=== PATIENT | female | born 2000 | race Caucasian/White ===

== ENCOUNTER 2019-10-23 03:47 | Emergency (ER) | payer SELFPAY ==
[2019-10-23] MEDS ORDERED: Proparacaine 0.5% Ophth Soln 15 ML Bottle EYELF ONE (03:57)
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
== END 2019-10-23 05:45 | disposition home or self-care (01) ==
LOC: JP.ED 03:47
DX: S06.0X0A Concussion without loss of consciousness, initial encounter (principal); S00.83XA Contusion of other part of head, initial encounter; S00.12XA Contusion of left eyelid and periocular area, initial encounter; V58.6XXA Passenger in pick-up truck or van injured in noncollision transport accident in traffic accident, initial encounter
CPT/HCPCS: 36415; 70450; 73630; 80053; 85025; 99284; A9270; 99283

== ENCOUNTER 2021-05-13 20:31 | Inpatient (IN) | payer SELFPAY ==
[2021-05-13] MEDS ORDERED: Ondansetron 4 MG/2 ML SDV IVPUSH ONE ×2 (20:33→23:53)
[2021-05-13] MEDS ORDERED: Sodium Chloride 0.9% 1,000 ML IV SCH (20:45)
--- NOTE | 2021-05-13 21:01 | EDM.PDOCBH ---
ED HPI GENERAL MEDICAL PROBLEM - General Chief Complaint: Behavioral/Psych Stated Complaint: MEDICAL VIA [facility] Time Seen by Provider: 05/13/21 20:32 Source of Information: Reports: Patient, EMS History Limitations: Reports: No Limitations - History of Present Illness INITIAL COMMENTS - FREE TEXT/NARRATIVE: Taina is a 20-year-old female brought in by [facility] for evaluation of attempted overdose. Patient states that she has been suicidal for the last 3 weeks and tonight was at the bar drinking. Her uncle picked her up and brought her home at which time she felt more anxious and suicidal and decided to ingest 200 tablets of ibuprofen 200 mg as well as 2 to 300 tablets of extra strength acetaminophen 500 mg and wash them down with 4 or 5 shots of tequila. The patient has a history for anxiety and depression and has been prescribed fluoxetine 40 mg a day which was recently increased from 20 mg a day as well as hydroxyzine 25 mg as needed for anxiety. She has vomited several times since EMS was involved. There are some pill fragments seen in the emesis bag that she presents with. The ingestion occurred approximately an hour prior to arrival. I did discuss the case with [place] poison control who recommended getting an acetaminophen level 4 hours after ingestion and if we lie along the nomogram above 150 and initiate N-acetylcholine therapy. denies pain Pain Score (Numeric/FACES): 0 - Related Data Allergies Allergy/AdvReac Type Severity Reaction Status Date / Time No Known Allergies Allergy Verified 05/13/21 20:53 Home Meds: Home Meds medroxyPROGESTERone Acetate [Depo-Provera] 1 injection IM ASDIRECTED 10/23/19 [History] FLUoxetine HCl [Prozac] 40 mg PO ASDIRECTED 05/13/21 [History] hydrOXYzine HCL [hydrOXYzine] 25 mg PO ASDIRECTED 05/13/21 [History] Past Medical History Musculoskeletal History: Reports: Fracture, Other (See Below) Other Musculoskeletal History: right foot Neurological History: Reports: Concussion Psychiatric History: Reports: Anxiety, Depression - Past Surgical History Musculoskeletal Surgical History: Reports: Other (See Below) Other Musculoskeletal Surgeries/Procedures:: surgical repair of right foot Social & Family History - Caffeine Use Caffeine Use: Reports: Coffee ED ROS GENERAL - Review of Systems Review Of Systems: See Below Constitutional: Reports: No Symptoms HEENT: Reports: No Symptoms Respiratory: Reports: No Symptoms Cardiovascular: Reports: No Symptoms Endocrine: Reports: No Symptoms GI/Abdominal: Reports: Abdominal Pain, Nausea, Vomiting : Reports: No Symptoms Musculoskeletal: Reports: No Symptoms Skin: Reports: No Symptoms Neurological: Reports: Headache, Tremors Psychiatric: Reports: Anxiety, Depression, Suicidal Ideation Hematologic/Lymphatic: Reports: No Symptoms Immunologic: Reports: No Symptoms ED EXAM, BEHAVIORAL HEALTH - Physical Exam Exam: See Below Exam Limited By: No Limitations General Appearance: Alert, Anxious, Mild Distress Eye Exam: Bilateral Eye: EOMI, PERRL Nose: Normal Inspection, Normal Mucosa Throat/Mouth: Normal Inspection, Normal Oropharynx, Normal Voice, No Airway Compromise Head: Atraumatic, Normocephalic Neck: Normal Inspection, Supple. No: Lymphadenopathy (R), Lymphadenopathy (L) Respiratory/Chest: No Respiratory Distress, Lungs Clear, Normal Breath Sounds Cardiovascular: Normal Peripheral Pulses, Regular Rate, Rhythm, No Murmur GI/Abdominal: Normal Bowel Sounds, Soft, No Distention, Tender (Tenderness to palpation in the epigastrium). No: Guarding, Rigid, Rebound Extremities: Normal Inspection, Normal Range of Motion Neurological: Alert, CN II-XII Intact, Normal Cognition, No Motor/Sensory Deficits, Oriented x 3 Psychiatric: Depressed Mood, Agitated, Poor Eye Contact, Suicidal Plan, Suicidal Thoughts Skin Exam: Warm, Dry #1 Interpretation EKG Date: 05/13/21 Time: 21:08 Rhythm: NSR Rate (Beats/Min): 81 Falcon: Normal P-Wave: Present QRS: Normal ST-T: Normal QT: Normal Comparison: NA - No Prior EKG COURSE, BEHAVIORAL HEALTH COMP - Course Vital Signs: Last Vital Signs Temp 37.0 C 05/16/21 07:57 Pulse 86 05/16/21 06:00 Resp 18 05/16/21 07:57 BP 109/46 L 05/16/21 07:57 Pulse Ox 99 05/16/21 07:57 Orders, Labs, Meds: Laboratory Tests 05/13/21 05/13/21 05/13/21 Range/Units 20:54 21:03 21:03 WBC 7.0 (3.2-11.0) K/uL RBC 4.48 (3.77-5.24) M/uL Hgb 13.5 (11.2-15.5) Hct 40.7 (34.3-46.0) % MCV 90.8 (81.4-99.0) fL MCH 30.1 L (31.6-35.5) pg MCHC 33.2 (31.6-35.5) g/dL Plt Count 292 (130-375) K/uL Immature Gran % (Auto) 0.4 (0.0-0.7) % Neut % (Auto) 68.0 H (36-66) % Lymph % (Auto) 28.4 (24-44) % Cobb % (Auto) 2.8 (2-6) % Eos % (Auto) 0.1 L (2-4) % Baso % (Auto) 0.3 (0-1) % Neut # (Auto) 4.77 (1.0-7.6) K/uL Lymph # (Auto) 2.00 (0.8-3.3) K/uL Cobb # (Auto) 0.20 (0.20-0.90) K/uL Eos # (Auto) 0.01 L (0.60-0.80) K/uL Baso # (Auto) 0.02 (0.00-0.10) K/uL Immature Gran # (Auto) 0.03 (0.00-0.23) K/uL Sodium 146 (140-148) mmol/L Potassium 3.4 L (3.6-5.2) mmol/L Chloride 108 (100-108) mmol/L Carbon Dioxide 23 (21-32) mmol/L Anion Gap 18.4 H (5.0-14.0) mmol/L BUN 9 (7-18) mg/dL Creatinine 0.7 (0.6-1.0) mg/dL Est Cr Clr Drug Dosing 122.59 mL/min Estimated GFR (MDRD) > 60 (>60) Glucose 119 H (74-106) mg/dL Calcium 8.3 L (8.5-10.1) mg/dL Total Bilirubin 0.3 (0.2-1.0) mg/dL AST 15 (15-37) U/L ALT 19 (12-78) U/L Alkaline Phosphatase 44 L (46-116) U/L C-Reactive Protein < 0.05 (0.0-0.3) mg/dL Total Protein 7.7 (6.4-8.2) g/dL Albumin 4.2 (3.4-5.0) g/dL Globulin 3.5 (2.3-3.5) g/dL Albumin/Globulin Ratio 1.2 (1.2-2.2) Lipase 165 (73-393) U/L Urine Color (YELLOW) Urine Appearance (CLEAR) Urine pH (5.0-8.0) Ur Specific Melrose (1.008-1.030) Urine Protein (NEGATIVE) mg/dL Urine Glucose (UA) (NEGATIVE) mg/dL Urine Ketones (NEGATIVE) mg/dL Urine Occult Blood (NEGATIVE) Urine Nitrite (NEGATIVE) Urine Bilirubin (NEGATIVE) Urine Urobilinogen (0.2-1.0) EU/dL Ur Leukocyte Esterase (NEGATIVE) Urine RBC (0-5) Urine WBC (0-5) Ur Epithelial Cells Amorphous Sediment Urine Bacteria Urine Mucus Urine HCG, Qual Salicylates (2.0-20.0) mg/dL Urine Opiates Screen (NEGATIVE) Ur Oxycodone Screen (NEGATIVE) Urine Methadone Screen (NEGATIVE) Ur Propoxyphene Screen (NEGATIVE) Acetaminophen 276.6 H (10.0-30.0) ug/mL Ur Barbiturates Screen (NEGATIVE) Ur Tricyclics Screen (NEGATIVE) Ur Phencyclidine Scrn (NEGATIVE) Ur Amphetamine Screen (NEGATIVE) U Methamphetamines Scrn (NEGATIVE) Urine MDMA Screen (NEGATIVE) U Benzodiazepines Scrn (NEGATIVE) U Cocaine Metab Screen (NEGATIVE) U Marijuana (THC) Screen (NEGATIVE) Ethyl Alcohol mg/dL Influenza Type A RNA Negative (NEGATIVE) RSV RNA (INAAT) Negative (NEGATIVE) Influenza Type B RNA Negative (NEGATIVE) SARS-CoV-2 RNA (MRAGE) Negative (NEGATIVE) 05/13/21 05/13/21 05/13/21 Range/Units 21:03 21:03 22:07 WBC (3.2-11.0) K/uL RBC (3.77-5.24) M/uL Hgb (11.2-15.5) Hct (34.3-46.0) % MCV (81.4-99.0) fL MCH (31.6-35.5) pg MCHC (31.6-35.5) g/dL Plt Count (130-375) K/uL Immature Gran % (Auto) (0.0-0.7) % Neut % (Auto) (36-66) % Lymph % (Auto) (24-44) % Cobb % (Auto) (2-6) % Eos % (Auto) (2-4) % Baso % (Auto) (0-1) % Neut # (Auto) (1.0-7.6) K/uL Lymph # (Auto) (0.8-3.3) K/uL Cobb # (Auto) (0.20-0.90) K/uL Eos # (Auto) (0.60-0.80) K/uL Baso # (Auto) (0.00-0.10) K/uL Immature Gran # (Auto) (0.00-0.23) K/uL Sodium (140-148) mmol/L Potassium (3.6-5.2) mmol/L Chloride (100-108) mmol/L Carbon Dioxide (21-32) mmol/L Anion Gap (5.0-14.0) mmol/L BUN (7-18) mg/dL Creatinine (0.6-1.0) mg/dL Est Cr Clr Drug Dosing mL/min Estimated GFR (MDRD) (>60) Glucose (74-106) mg/dL Calcium (8.5-10.1) mg/dL Total Bilirubin (0.2-1.0) mg/dL AST (15-37) U/L ALT (12-78) U/L Alkaline Phosphatase (46-116) U/L C-Reactive Protein (0.0-0.3) mg/dL Total Protein (6.4-8.2) g/dL Albumin (3.4-5.0) g/dL Globulin (2.3-3.5) g/dL Albumin/Globulin Ratio (1.2-2.2) Lipase (73-393) U/L Urine Color Yellow (YELLOW) Urine Appearance Clear (CLEAR) Urine pH 6.0 (5.0-8.0) Ur Specific Mel[place] 1.020 (1.008-1.030) Urine Protein Negative (NEGATIVE) mg/dL Urine Glucose (UA) Negative (NEGATIVE) mg/dL Urine Ketones Negative (NEGATIVE) mg/dL Urine Occult Blood Negative (NEGATIVE) Urine Nitrite Negative (NEGATIVE) Urine Bilirubin Negative (NEGATIVE) Urine Urobilinogen 0.2 (0.2-1.0) EU/dL Ur Leukocyte Esterase Negative (NEGATIVE) Urine RBC 0-5 (0-5) Urine WBC Not seen (0-5) Ur Epithelial Cells Rare Amorphous Sediment Not seen Urine Bacteria Not seen Urine Mucus Not seen Urine HCG, Qual Salicylates 1.6 L (2.0-20.0) mg/dL Urine Opiates Screen (NEGATIVE) Ur Oxycodone Screen (NEGATIVE) Urine Methadone Screen (NEGATIVE) Ur Propoxyphene Screen (NEGATIVE) Acetaminophen (10.0-30.0) ug/mL Ur Barbiturates Screen (NEGATIVE) Ur Tricyclics Screen (NEGATIVE) Ur Phencyclidine Scrn (NEGATIVE) Ur Amphetamine Screen (NEGATIVE) U Methamphetamines Scrn (NEGATIVE) Urine MDMA Screen (NEGATIVE) U Benzodiazepines Scrn (NEGATIVE) U Cocaine Metab Screen (NEGATIVE) U Marijuana (THC) Screen (NEGATIVE) Ethyl Alcohol 232 mg/dL Influenza Type A RNA (NEGATIVE) RSV RNA (INAAT) (NEGATIVE) Influenza Type B RNA (NEGATIVE) SARS-CoV-2 RNA (MARGE) (NEGATIVE) 05/13/21 05/13/21 05/13/21 Range/Units 22:07 22:07 23:30 WBC (3.2-11.0) K/uL RBC (3.77-5.24) M/uL Hgb (11.2-15.5) Hct (34.3-46.0) % MCV (81.4-99.0) fL MCH (31.6-35.5) pg MCHC (31.6-35.5) g/dL Plt Count (130-375) K/uL Immature Gran % (Auto) (0.0-0.7) % Neut % (Auto) (36-66) % Lymph % (Auto) (24-44) % Cobb % (Auto) (2-6) % Eos % (Auto) (2-4) % Baso % (Auto) (0-1) % Neut # (Auto) (1.0-7.6) K/uL Lymph # (Auto) (0.8-3.3) K/uL Cobb # (Auto) (0.20-0.90) K/uL Eos # (Auto) (0.60-0.80) K/uL Baso # (Auto) (0.00-0.10) K/uL Immature Gran # (Auto) (0.00-0.23) K/uL Sodium (140-148) mmol/L Potassium (3.6-5.2) mmol/L Chloride (100-108) mmol/L Carbon Dioxide (21-32) mmol/L Anion Gap (5.0-14.0) mmol/L BUN (7-18) mg/dL Creatinine (0.6-1.0) mg/dL Est Cr Clr Drug Dosing mL/min Estimated GFR (MDRD) (>60) Glucose (74-106) mg/dL Calcium (8.5-10.1) mg/dL Total Bilirubin (0.2-1.0) mg/dL AST (15-37) U/L ALT (12-78) U/L Alkaline Phosphatase (46-116) U/L C-Reactive Protein (0.0-0.3) mg/dL Total Protein (6.4-8.2) g/dL Albumin (3.4-5.0) g/dL Globulin (2.3-3.5) g/dL Albumin/Globulin Ratio (1.2-2.2) Lipase (73-393) U/L Urine Color (YELLOW) Urine Appearance (CLEAR) Urine pH (5.0-8.0) Ur Specific Melrose (1.008-1.030) Urine Protein (NEGATIVE) mg/dL Urine Glucose (UA) (NEGATIVE) mg/dL Urine Ketones (NEGATIVE) mg/dL Urine Occult Blood (NEGATIVE) Urine Nitrite (NEGATIVE) Urine Bilirubin (NEGATIVE) Urine Urobilinogen (0.2-1.0) EU/dL Ur Leukocyte Esterase (NEGATIVE) Urine RBC (0-5) Urine WBC (0-5) Ur Epithelial Cells Amorphous Sediment Urine Bacteria Urine Mucus Urine HCG, Qual Negative Salicylates (2.0-20.0) mg/dL Urine Opiates Screen Negative (NEGATIVE) Ur Oxycodone Screen Negative (NEGATIVE) Urine Methadone Screen Negative (NEGATIVE) Ur Propoxyphene Screen Negative (NEGATIVE) Acetaminophen 345.9 H (10.0-30.0) ug/mL Ur Barbiturates Screen Negative (NEGATIVE) Ur Tricyclics Screen Negative (NEGATIVE) Ur Phencyclidine Scrn Negative (NEGATIVE) Ur Amphetamine Screen Negative (NEGATIVE) U Methamphetamines Scrn Negative (NEGATIVE) Urine MDMA Screen Negative (NEGATIVE) U Benzodiazepines Scrn Negative (NEGATIVE) U Cocaine Metab Screen Negative (NEGATIVE) U Marijuana (THC) Screen Negative (NEGATIVE) Ethyl Alcohol mg/dL Influenza Type A RNA (NEGATIVE) RSV RNA (INAAT) (NEGATIVE) Influenza Type B RNA (NEGATIVE) SARS-CoV-2 RNA (MARGE) (NEGATIVE) 05/14/21 05/14/21 05/14/21 Range/Units 07:30 11:00 11:00 WBC 7.3 (3.2-11.0) K/uL RBC 4.62 (3.77-5.24) M/uL Hgb 13.8 (11.2-15.5) Hct 42.9 (34.3-46.0) % MCV 92.9 (81.4-99.0) fL MCH 29.9 L (31.6-35.5) pg MCHC 32.2 (31.6-35.5) g/dL Plt Count 287 (130-375) K/uL Immature Gran % (Auto) 0.5 (0.0-0.7) % Neut % (Auto) 78.1 H (36-66) % Lymph % (Auto) 19.8 L (24-44) % Cobb % (Auto) 1.5 L (2-6) % Eos % (Auto) 0.0 L (2-4) % Baso % (Auto) 0.1 (0-1) % Neut # (Auto) 5.73 (1.0-7.6) K/uL Lymph # (Auto) 1.45 (0.8-3.3) K/uL Cobb # (Auto) 0.11 L (0.20-0.90) K/uL Eos # (Auto) 0.00 L (0.60-0.80) K/uL Baso # (Auto) 0.01 (0.00-0.10) K/uL Immature Gran # (Auto) 0.04 (0.00-0.23) K/uL Sodium 141 (140-148) mmol/L Potassium 4.0 (3.6-5.2) mmol/L Chloride 106 (100-108) mmol/L Carbon Dioxide 16 L (21-32) mmol/L Anion Gap 23.0 H (5.0-14.0) mmol/L BUN 7 (7-18) mg/dL Creatinine 0.9 (0.6-1.0) mg/dL Est Cr Clr Drug Dosing 95.35 mL/min Estimated GFR (MDRD) > 60 (>60) Glucose 136 H (74-106) mg/dL Calcium 8.4 L (8.5-10.1) mg/dL Total Bilirubin 0.3 (0.2-1.0) mg/dL AST 17 (15-37) U/L ALT 20 (12-78) U/L Alkaline Phosphatase 41 L (46-116) U/L C-Reactive Protein (0.0-0.3) mg/dL Total Protein 8.2 (6.4-8.2) g/dL Albumin 4.4 (3.4-5.0) g/dL Globulin 3.8 H (2.3-3.5) g/dL Albumin/Globulin Ratio 1.2 (1.2-2.2) Lipase (73-393) U/L Urine Color (YELLOW) Urine Appearance (CLEAR) Urine pH (5.0-8.0) Ur Specific Melrose (1.008-1.030) Urine Protein (NEGATIVE) mg/dL Urine Glucose (UA) (NEGATIVE) mg/dL Urine Ketones (NEGATIVE) mg/dL Urine Occult Blood (NEGATIVE) Urine Nitrite (NEGATIVE) Urine Bilirubin (NEGATIVE) Urine Urobilinogen (0.2-1.0) EU/dL Ur Leukocyte Esterase (NEGATIVE) Urine RBC (0-5) Urine WBC (0-5) Ur Epithelial Cells Amorphous Sediment Urine Bacteria Urine Mucus Urine HCG, Qual Salicylates (2.0-20.0) mg/dL Urine Opiates Screen (NEGATIVE) Ur Oxycodone Screen (NEGATIVE) Urine Methadone Screen (NEGATIVE) Ur Propoxyphene Screen (NEGATIVE) Acetaminophen 397.7 H (10.0-30.0) ug/mL Ur Barbiturates Screen (NEGATIVE) Ur Tricyclics Screen (NEGATIVE) Ur Phencyclidine Scrn (NEGATIVE) Ur Amphetamine Screen (NEGATIVE) U Methamphetamines Scrn (NEGATIVE) Urine MDMA Screen (NEGATIVE) U Benzodiazepines Scrn (NEGATIVE) U Cocaine Metab Screen (NEGATIVE) U Marijuana (THC) Screen (NEGATIVE) Ethyl Alcohol mg/dL Influenza Type A RNA (NEGATIVE) RSV RNA (INAAT) (NEGATIVE) Influenza Type B RNA (NEGATIVE) SARS-CoV-2 RNA (MARGE) (NEGATIVE) Medications Discontinued Medications Generic Name Dose Route Start Last Admin Trade Name Abel PRN Reason Stop Dose Admin Fluoxetine HCl 40 mg 05/14/21 14:35 05/16/21 07:59 Fluoxetine 20 Mg Cap PO 40 mg DAILY TOBIN Administration Sodium Chloride 1,000 mls @ 999 mls/hr 05/13/21 20:45 05/13/21 21:05 Normal Saline IV 999 mls/hr ASDIRECTED TOBIN Administration Acetylcysteine 10,206 mg/ 251.03 mls @ 251.03 mls/hr 05/14/21 00:01 05/14/21 00:31 Dextrose/Water IV 05/14/21 00:02 251.03 mls/hr STAT STA Administration Protocol Acetylcysteine 3,402 mg/ 517.01 mls @ 129.253 mls/hr 05/14/21 01:04 05/14/21 01:47 Dextrose/Water IV 05/14/21 01:05 129.253 mls/hr ONETIME ONE Administration Protocol Acetylcysteine 6,804 mg/ 1,034.02 mls @ 64.626 mls/hr 05/14/21 05:06 05/14/21 06:03 Dextrose/Water IV 05/14/21 05:07 64.626 mls/hr ONETIME ONE Administration Protocol Acetylcysteine Confirm 05/14/21 00:19 05/14/21 00:33 Acetadote 20% Administered 05/14/21 00:20 Not Given Dose 60 mls @ as directed .ROUTE .STK-MED ONE Dextrose/Water Confirm 05/14/21 00:21 05/14/21 00:33 Dextrose 5% In Water Administered 05/14/21 00:22 Not Given Dose 250 mls @ as directed .ROUTE .STK-MED ONE Acetylcysteine Confirm 05/14/21 05:50 05/14/21 06:04 Acetadote 20% Administered 05/14/21 05:51 Not Given Dose 30 mls @ as directed .ROUTE .STK-MED ONE Sodium Chloride 1,000 mls @ 125 mls/hr 05/14/21 14:35 05/15/21 06:28 Normal Saline IV 125 mls/hr ASDIRECTED TOBIN Administration Acetylcysteine 6,804 mg/ 1,034.02 mls @ 64.626 mls/hr 05/14/21 22:00 05/14/21 22:28 Dextrose/Water IV 05/15/21 13:59 64.626 mls/hr ONETIME ONE Administration Acetylcysteine Confirm 05/14/21 21:50 05/14/21 22:13 Acetadote 20% Administered 05/14/21 21:51 Not Given Dose 60 mls @ as directed .ROUTE .STK-MED ONE Potassium Chloride 20 meq/ 100 mls @ 50 mls/hr 05/15/21 06:00 05/15/21 06:20 Premix IV 05/15/21 07:59 50 mls/hr ONETIME ONE Administration Potassium Chloride 20 meq/ 112 mls @ 50 mls/hr 05/15/21 08:00 05/15/21 08:11 Lidocaine HCl 2 ml/ Sodium IV 05/15/21 10:14 50 mls/hr Chloride ONETIME ONE Administration Lidocaine HCl 2 ml 05/15/21 06:00 05/15/21 06:21 Lidocaine 1% 5 Ml Sdv INJECT 05/15/21 06:01 2 ml ONETIME ONE Administration Olanzapine 10 mg 05/13/21 21:39 05/13/21 21:47 Olanzapine 10 Mg Vial IM 05/13/21 21:40 10 mg ONETIME ONE Administration Ondansetron HCl 4 mg 05/13/21 20:33 05/13/21 21:05 Ondansetron 4 Mg/2 Ml Sdv IVPUSH 05/13/21 20:34 4 mg ONETIME ONE Administration Ondansetron HCl 4 mg 05/13/21 23:53 05/14/21 00:01 Ondansetron 4 Mg/2 Ml Sdv IVPUSH 05/13/21 23:54 4 mg ONETIME ONE Administration Ondansetron HCl 4 mg 05/14/21 14:35 Ondansetron 4 Mg/2 Ml Sdv IVPUSH Q4H PRN Nausea/Vomiting Ondansetron HCl 4 mg 05/14/21 20:07 05/15/21 07:22 Ondansetron 4 Mg Tab.Dis PO 4 mg Q4H PRN Administration Nausea/Vomiting Polyethylene Glycol 17 gm 05/14/21 14:35 Polyethylene Glycol 3350 Powder 17 Gm Packet PO DAILY PRN Constipation Potassium Chloride 40 meq 05/15/21 05:48 05/15/21 06:21 Potassium Chloride 20 Meq Tab.Er PO 05/15/21 05:49 40 meq ONETIME ONE Administration Sodium Chloride 10 ml 05/14/21 14:35 Sodium Chloride 0.9% 10 Ml Syringe FLUSH ASDIRECTED PRN Keep Vein Open Re-Assessment/Re-Exam: 05/13/21 21:00 The patient started removing everything including her IVs nec essitating her being placed in restraints. This will need to continue until we ensure that patient does not required any medical intervention for her Tylenol overdose. 72-hour hold was initiated and endorsed due to suicide ideation and attempted suicide. Once we get her medically cleared from the Tylenol overdose, we will start to look for inpatient placement. 05/13/21 21:45 patient's labs showing a normal CBC with a leukocyte count of 7.0, hemoglobin of 13.5, hematocrit of 40.7 and platelet count of 282,000. The patient's comprehensive metabolic panel shows a sodium 146, potassium 3.4, ch loride of 108, bicarbonate of 23, BUN of 9 with a creatinine of 0.7 and a glucose of 119. Calcium is 8.3, AST is 15, ALT is 19, and alkaline phosphatase is 44. Lipase is normal at 165. C-reactive protein is normal at less than 0.05. Ethanol level is 232, acetaminophen is 276 and salicylate is 1.6. The patient is negative for Covid, RSV, and influenza. Urinalysis, urine drug screen, and urine are all pending. I discussed the case with poison control again as the 1 hour level came back at 276. They are still recommending holding off on N-acetylcysteine until the 4-hour level was drawn and if it to is over 150 then start treatment. The patient continued to escalate in the restraints and was given Zyprexa 10 mg IM. 05/13/21 22:50 reviewed the remainder of the labs including urinalysis, urine drug screen, and urine . All of these were negative. 05/14/21 00:05 the 4-hour acetaminophen level was greater than 300 which certainly puts it into the lethal range so we will initiate N-acetylcysteine with a loading dose of 150 mg/kg per dose over an hour followed by tier 2 which is 50 mg/kg per dose over 4 hours and then tier 3 which is 100 mg/kg per dose over 16 hours. Actual number for acetaminophen level is 349. 05/14/21 07:30 care of the patient will be transferred from Dr. Harrington to Dr. Dorseyr while awaiting placement of the patient for Tylenol overdose and suicide attempt. Departure - Departure Time of Disposition: 10:55 Disposition: Admitted As Inpatient 64 Clinical Impression: Suicide ideation Intentional acetaminophen overdose Qualifiers: Encounter type: initial encounter Qualified Code(s): T39.1X2A - Poisoning by 4- Aminophenol derivatives, intentional self-harm, initial encounter Intentional ibuprofen overdose Qualifiers: Encounter type: initial encounter Qualified Code(s): T39.312A - Poisoning by propionic acid derivatives, intentional self-harm, initial encounter Alcohol intoxication Qualifiers: Complication of substance-induced condition: uncomplicated Qualified Code(s): F10.920 - Alcohol use, unspecified with intoxication, uncomplicated - Discharge Information Critical Care Note - Critical Care Note Total Time (mins): 55 (Critical care time of 55 minutes to initiate patient evaluation, review records, and manage patient care. This excludes procedures.) - Problem List & Annotations (1) Alcohol intoxication SNOMED Code(s): 82573668 Code(s): F10.929 - ALCOHOL USE, UNSPECIFIED WITH INTOXICATION, UNSPECIFIED Status: Acute Priority: High Qualifiers: Complication of substance-induced condition: uncomplicated Qualified Code(s): F10.920 - Alcohol use, unspecified with intoxication, uncomplicated (2) Intentional acetaminophen overdose SNOMED Code(s): 323683833 Code(s): T39.1X2A - POISONING BY 4-AMINOPHENOL DERIVATIVES, SELF-HARM, INIT Status: Acute Priority: High Qualifiers: Encounter type: initial encounter Qualified Code(s): T39.1X2A - Poisoning by 4-Aminophenol derivatives, intentional self-harm, initial encounter (3) Intentional ibuprofen overdose SNOMED Code(s): 436679878 Code(s): T39.312A - POISONING BY PROPIONIC ACID DERIVATIVES, SELF-HARM, INIT Status: Acute Priority: High Qualifiers: Encounter type: initial encounter Qualified Code(s): T39.312A - Poisoning by propionic acid derivatives, intentional self-harm, initial encounter (4) Suicide ideation SNOMED Code(s): 0781883 Code(s): R45.851 - SUICIDAL IDEATIONS Status: Acute Priority: High - Problem List Review Problem List Initiated/Reviewed/Updated: Yes
[2021-05-13 21:22] LABS: CORONAVIRUS COVID-19 NAA NEGATIVE (NEGATIVE)
[2021-05-13 21:25] LABS: ACETAMINOPHEN 276.6 ug/mL (10.0-30.0)
[2021-05-13] MEDS ORDERED: OLANZapine 10 MG Vial IM ONE (21:39)
[2021-05-14] MEDS ORDERED: DEXTROSE 5% IV STA ×2 (00:01)
[2021-05-14] MEDS ORDERED: WATER IV STA ×2 (00:01)
[2021-05-14] MEDS ORDERED: ACETYLCYSTEINE IV STA ×2 (00:01)
[2021-05-14] MEDS ORDERED: Acetylcysteine 60 ML ONE ×2 (00:19→21:50)
[2021-05-14] MEDS ORDERED: Dextrose 5% in Water 250 ML ONE (00:21)
[2021-05-14] MEDS ORDERED: ACETYLCYSTEINE IV ONE ×6 (01:04→22:00)
[2021-05-14] MEDS ORDERED: DEXTROSE 5% IV ONE ×6 (01:04→22:00)
[2021-05-14] MEDS ORDERED: WATER IV ONE ×6 (01:04→22:00)
[2021-05-14] MEDS ORDERED: Acetylcysteine 30 ML ONE (05:50)
--- NOTE | 2021-05-14 14:02 | PCM.HP.2 ---
H&P History of Present Illness - General Date of Service: 05/14/21 Admit Problem/Dx: Admission Diagnosis/Problem Admission Diagnosis/Problem Drug overdose - suicide Source of Information: Patient, Provider, RN Notes Reviewed History Limitations: Reports: No Limitations - History of Present Illness Initial Comments - Free Text/Narative: Ms. Paez is a 20-year-old woman who was admitted through the emergency department following a acetaminophen overdose and apparent suicide attempt. She does have a history of anxiety and depression, with previous suicide attempt. She has been struggling with symptoms of depression but denies suicidal ideation or intent until yesterday. She drank quite a bit of alcohol during the early evening and after going home took a large amount of acetaminophen and ibuprofen. She was brought into the emergency department by EMS. Initial Tylenol level 1 hour after ingestion was 276 and the second level at 4 hours was 345. Is in control is been contacted and she was started on acetylcysteine per protocol. She did become agitated during the night and did receive some Zyprexa. She is alert and interactive now, currently denies suicidal ideation or intent. She is on a 72-hour hold and has not yet had psychological assessment. - Related Data Allergies/Adverse Reactions: Allergies Allergy/AdvReac Type Severity Reaction Status Date / Time No Known Allergies Allergy Verified 05/13/21 20:53 Home Medications: Home Meds medroxyPROGESTERone Acetate [Depo-Provera] 1 injection IM ASDIRECTED 10/23/19 [History] FLUoxetine HCl [Prozac] 40 mg PO ASDIRECTED 05/13/21 [History] hydrOXYzine HCL [hydrOXYzine] 25 mg PO ASDIRECTED 05/13/21 [History] Past Medical History Musculoskeletal History: Reports: Fracture, Other (See Below) Other Musculoskeletal History: right foot Neurological History: Reports: Concussion Psychiatric History: Reports: Anxiety, Depression - Past Surgical History Musculoskeletal Surgical History: Reports: Other (See Below) Other Musculoskeletal Surgeries/Procedures:: surgical repair of right foot Social & Family History - Tobacco Use Tobacco Use Status *Q: Light Tobacco User Years of Tobacco use: 0 Packs/Tins Daily: 0 - Caffeine Use Caffeine Use: Reports: Coffee - Recreational Drug Use Recreational Drug Use: No H&P Review of Systems - Review of Systems: Review Of Systems: See Below General: Reports: No Symptoms HEENT: Reports: No Symptoms Pulmonary: Reports: No Symptoms Cardiovascular: Reports: No Symptoms Gastrointestinal: Reports: Nausea, Vomiting. Denies: Abdominal Pain, Difficulty Swallowing, Distension, Hematemesis, Hematochezia, Melena Genitourinary: Reports: No Symptoms Musculoskeletal: Reports: No Symptoms Skin: Reports: No Symptoms Psychiatric: Reports: No Symptoms Neurological: Reports: No Symptoms Hematologic/Lymphatic: Reports: No Symptoms Immunologic: Reports: No Symptoms Exam - Exam Exam: See Below - Vital Signs Vital Signs: Last Vital Signs Temp 98.0 F 05/14/21 12:00 Pulse 74 05/14/21 13:00 Resp 20 05/14/21 13:00 BP 127/75 05/14/21 13:00 Pulse Ox 96 05/14/21 11:00 Weight: 150 lb - Exam General: Alert, Oriented, Cooperative, Moderate Distress HEENT: Conjunctiva Clear, Hearing Intact, Mucosa Moist & [place], Normal Nasal Septum, Posterior Pharynx Clear, Pupils Equal Neck: Supple, Trachea Midline Lungs: Clear to Auscultation, Normal Respiratory Effort Cardiovascular: Regular Rate, Regular Rhythm, Normal S1, Normal S2. No: Systolic Murmur, Diastolic Murmur GI/Abdominal Exam: Soft, Non-Tender, No Organomegaly, No Distention Back Exam: Normal Inspection, Full Range of Motion Extremities: Non-Tender, No Pedal Edema Skin: Warm, Dry, Intact Neurological: Cranial Nerves Intact, Strength Equal Bilateral, Normal Speech, Normal Tone, Sensation Intact. No: Focal Deficit Neuro Extensive - Mental Status: Alert, Oriented x3, Normal Mood/Affect, Normal Cognition, Memory Intact - Patient Data Lab Results Last 24 hrs: Laboratory Results - last 24 hr 05/13/21 05/13/21 05/13/21 Range/Units 20:54 21:03 21:03 WBC 7.0 (3.2-11.0) K/uL RBC 4.48 (3.77-5.24) M/uL Hgb 13.5 (11.2-15.5) Hct 40.7 (34.3-46.0) % MCV 90.8 (81.4-99.0) fL MCH 30.1 L (31.6-35.5) pg MCHC 33.2 (31.6-35.5) g/dL Plt Count 292 (130-375) K/uL Immature Gran % (Auto) 0.4 (0.0-0.7) % Neut % (Auto) 68.0 H (36-66) % Lymph % (Auto) 28.4 (24-44) % [place] % (Auto) 2.8 (2-6) % Eos % (Auto) 0.1 L (2-4) % Baso % (Auto) 0.3 (0-1) % Neut # (Auto) 4.77 (1.0-7.6) K/uL Lymph # (Auto) 2.00 (0.8-3.3) K/uL [place] # (Auto) 0.20 (0.20-0.90) K/uL Eos # (Auto) 0.01 L (0.60-0.80) K/uL Baso # (Auto) 0.02 (0.00-0.10) K/uL Immature Gran # (Auto) 0.03 (0.00-0.23) K/uL Sodium 146 (140-148) mmol/L Potassium 3.4 L (3.6-5.2) mmol/L Chloride 108 (100-108) mmol/L Carbon Dioxide 23 (21-32) mmol/L Anion Gap 18.4 H (5.0-14.0) mmol/L BUN 9 (7-18) mg/dL Creatinine 0.7 (0.6-1.0) mg/dL Est Cr Clr Drug Dosing 122.59 mL/min Estimated GFR (MDRD) > 60 (>60) Glucose 119 H (74-106) mg/dL Calcium 8.3 L (8.5-10.1) mg/dL Total Bilirubin 0.3 (0.2-1.0) mg/dL AST 15 (15-37) U/L ALT 19 (12-78) U/L Alkaline Phosphatase 44 L (46-116) U/L C-Reactive Protein < 0.05 (0.0-0.3) mg/dL Total Protein 7.7 (6.4-8.2) g/dL Albumin 4.2 (3.4-5.0) g/dL Globulin 3.5 (2.3-3.5) g/dL Albumin/Globulin Ratio 1.2 (1.2-2.2) Lipase 165 (73-393) U/L Urine Color (YELLOW) Urine Appearance (CLEAR) Urine pH (5.0-8.0) Ur Specific [place] (1.008-1.030) Urine Protein (NEGATIVE) mg/dL Urine Glucose (UA) (NEGATIVE) mg/dL Urine Ketones (NEGATIVE) mg/dL Urine Occult Blood (NEGATIVE) Urine Nitrite (NEGATIVE) Urine Bilirubin (NEGATIVE) Urine Urobilinogen (0.2-1.0) EU/dL Ur Leukocyte Esterase (NEGATIVE) Urine RBC (0-5) Urine WBC (0-5) Ur Epithelial Cells Amorphous Sediment Urine Bacteria Urine Mucus Urine HCG, Qual Salicylates (2.0-20.0) mg/dL Urine Opiates Screen (NEGATIVE) Ur Oxycodone Screen (NEGATIVE) Urine Methadone Screen (NEGATIVE) Ur Propoxyphene Screen (NEGATIVE) Acetaminophen 276.6 H (10.0-30.0) ug/mL Ur Barbiturates Screen (NEGATIVE) Ur Tricyclics Screen (NEGATIVE) Ur Phencyclidine Scrn (NEGATIVE) Ur Amphetamine Screen (NEGATIVE) U Methamphetamines Scrn (NEGATIVE) Urine MDMA Screen (NEGATIVE) U Benzodiazepines Scrn (NEGATIVE) U Cocaine Metab Screen (NEGATIVE) U Marijuana (THC) Screen (NEGATIVE) Ethyl Alcohol mg/dL Influenza Type A RNA Negative (NEGATIVE) RSV RNA (INAAT) Negative (NEGATIVE) Influenza Type B RNA Negative (NEGATIVE) SARS-CoV-2 RNA (MARGE) Negative (NEGATIVE) 05/13/21 05/13/21 05/13/21 Range/Units 21:03 21:03 22:07 WBC (3.2-11.0) K/uL RBC (3.77-5.24) M/uL Hgb (11.2-15.5) Hct (34.3-46.0) % MCV (81.4-99.0) fL MCH (31.6-35.5) pg MCHC (31.6-35.5) g/dL Plt Count (130-375) K/uL Immature Gran % (Auto) (0.0-0.7) % Neut % (Auto) (36-66) % Lymph % (Auto) (24-44) % [place] % (Auto) (2-6) % Eos % (Auto) (2-4) % Baso % (Auto) (0-1) % Neut # (Auto) (1.0-7.6) K/uL Lymph # (Auto) (0.8-3.3) K/uL [place] # (Auto) (0.20-0.90) K/uL Eos # (Auto) (0.60-0.80) K/uL Baso # (Auto) (0.00-0.10) K/uL Immature Gran # (Auto) (0.00-0.23) K/uL Sodium (140-148) mmol/L Potassium (3.6-5.2) mmol/L Chloride (100-108) mmol/L Carbon Dioxide (21-32) mmol/L Anion Gap (5.0-14.0) mmol/L BUN (7-18) mg/dL Creatinine (0.6-1.0) mg/dL Est Cr Clr Drug Dosing mL/min Estimated GFR (MDRD) (>60) Glucose (74-106) mg/dL Calcium (8.5-10.1) mg/dL Total Bilirubin (0.2-1.0) mg/dL AST (15-37) U/L ALT (12-78) U/L Alkaline Phosphatase (46-116) U/L C-Reactive Protein (0.0-0.3) mg/dL Total Protein (6.4-8.2) g/dL Albumin (3.4-5.0) g/dL Globulin (2.3-3.5) g/dL Albumin/Globulin Ratio (1.2-2.2) Lipase (73-393) U/L Urine Color Yellow (YELLOW) Urine Appearance Clear (CLEAR) Urine pH 6.0 (5.0-8.0) Ur Specific [place] 1.020 (1.008-1.030) Urine Protein Negative (NEGATIVE) mg/dL Urine Glucose (UA) Negative (NEGATIVE) mg/dL Urine Ketones Negative (NEGATIVE) mg/dL Urine Occult Blood Negative (NEGATIVE) Urine Nitrite Negative (NEGATIVE) Urine Bilirubin Negative (NEGATIVE) Urine Urobilinogen 0.2 (0.2-1.0) EU/dL Ur Leukocyte Esterase Negative (NEGATIVE) Urine RBC 0-5 (0-5) Urine WBC Not seen (0-5) Ur Epithelial Cells Rare Amorphous Sediment Not seen Urine Bacteria Not seen Urine Mucus Not seen Urine HCG, Qual Salicylates 1.6 L (2.0-20.0) mg/dL Urine Opiates Screen (NEGATIVE) Ur Oxycodone Screen (NEGATIVE) Urine Methadone Screen (NEGATIVE) Ur Propoxyphene Screen (NEGATIVE) Acetaminophen (10.0-30.0) ug/mL Ur Barbiturates Screen (NEGATIVE) Ur Tricyclics Screen (NEGATIVE) Ur Phencyclidine Scrn (NEGATIVE) Ur Amphetamine Screen (NEGATIVE) U Methamphetamines Scrn (NEGATIVE) Urine MDMA Screen (NEGATIVE) U Benzodiazepines Scrn (NEGATIVE) U Cocaine Metab Screen (NEGATIVE) U Marijuana (THC) Screen (NEGATIVE) Ethyl Alcohol 232 mg/dL Influenza Type A RNA (NEGATIVE) RSV RNA (INAAT) (NEGATIVE) Influenza Type B RNA (NEGATIVE) SARS-CoV-2 RNA (MARGE) (NEGATIVE) 05/13/21 05/13/21 05/13/21 Range/Units 22:07 22:07 23:30 WBC (3.2-11.0) K/uL RBC (3.77-5.24) M/uL Hgb (11.2-15.5) Hct (34.3-46.0) % MCV (81.4-99.0) fL MCH (31.6-35.5) pg MCHC (31.6-35.5) g/dL Plt Count (130-375) K/uL Immature Gran % (Auto) (0.0-0.7) % Neut % (Auto) (36-66) % Lymph % (Auto) (24-44) % [place] % (Auto) (2-6) % Eos % (Auto) (2-4) % Baso % (Auto) (0-1) % Neut # (Auto) (1.0-7.6) K/uL Lymph # (Auto) (0.8-3.3) K/uL [place] # (Auto) (0.20-0.90) K/uL Eos # (Auto) (0.60-0.80) K/uL Baso # (Auto) (0.00-0.10) K/uL Immature Gran # (Auto) (0.00-0.23) K/uL Sodium (140-148) mmol/L Potassium (3.6-5.2) mmol/L Chloride (100-108) mmol/L Carbon Dioxide (21-32) mmol/L Anion Gap (5.0-14.0) mmol/L BUN (7-18) mg/dL Creatinine (0.6-1.0) mg/dL Est Cr Clr Drug Dosing mL/min Estimated GFR (MDRD) (>60) Glucose (74-106) mg/dL Calcium (8.5-10.1) mg/dL Total Bilirubin (0.2-1.0) mg/dL AST (15-37) U/L ALT (12-78) U/L Alkaline Phosphatase (46-116) U/L C-Reactive Protein (0.0-0.3) mg/dL Total Protein (6.4-8.2) g/dL Albumin (3.4-5.0) g/dL Globulin (2.3-3.5) g/dL Albumin/Globulin Ratio (1.2-2.2) Lipase (73-393) U/L Urine Color (YELLOW) Urine Appearance (CLEAR) Urine pH (5.0-8.0) Ur Specific [place] (1.008-1.030) Urine Protein (NEGATIVE) mg/dL Urine Glucose (UA) (NEGATIVE) mg/dL Urine Ketones (NEGATIVE) mg/dL Urine Occult Blood (NEGATIVE) Urine Nitrite (NEGATIVE) Urine Bilirubin (NEGATIVE) Urine Urobilinogen (0.2-1.0) EU/dL Ur Leukocyte Esterase (NEGATIVE) Urine RBC (0-5) Urine WBC (0-5) Ur Epithelial Cells Amorphous Sediment Urine Bacteria Urine Mucus Urine HCG, Qual Negative Salicylates (2.0-20.0) mg/dL Urine Opiates Screen Negative (NEGATIVE) Ur Oxycodone Screen Negative (NEGATIVE) Urine Methadone Screen Negative (NEGATIVE) Ur Propoxyphene Screen Negative (NEGATIVE) Acetaminophen 345.9 H (10.0-30.0) ug/mL Ur Barbiturates Screen Negative (NEGATIVE) Ur Tricyclics Screen Negative (NEGATIVE) Ur Phencyclidine Scrn Negative (NEGATIVE) Ur Amphetamine Screen Negative (NEGATIVE) U Methamphetamines Scrn Negative (NEGATIVE) Urine MDMA Screen Negative (NEGATIVE) U Benzodiazepines Scrn Negative (NEGATIVE) U Cocaine Metab Screen Negative (NEGATIVE) U Marijuana (THC) Screen Negative (NEGATIVE) Ethyl Alcohol mg/dL Influenza Type A RNA (NEGATIVE) RSV RNA (INAAT) (NEGATIVE) Influenza Type B RNA (NEGATIVE) SARS-CoV-2 RNA (MARGE) (NEGATIVE) 05/14/21 05/14/21 05/14/21 Range/Units 07:30 11:00 11:00 WBC 7.3 (3.2-11.0) K/uL RBC 4.62 (3.77-5.24) M/uL Hgb 13.8 (11.2-15.5) Hct 42.9 (34.3-46.0) % MCV 92.9 (81.4-99.0) fL MCH 29.9 L (31.6-35.5) pg MCHC 32.2 (31.6-35.5) g/dL Plt Count 287 (130-375) K/uL Immature Gran % (Auto) 0.5 (0.0-0.7) % Neut % (Auto) 78.1 H (36-66) % Lymph % (Auto) 19.8 L (24-44) % [place] % (Auto) 1.5 L (2-6) % Eos % (Auto) 0.0 L (2-4) % Baso % (Auto) 0.1 (0-1) % Neut # (Auto) 5.73 (1.0-7.6) K/uL Lymph # (Auto) 1.45 (0.8-3.3) K/uL [place] # (Auto) 0.11 L (0.20-0.90) K/uL Eos # (Auto) 0.00 L (0.60-0.80) K/uL Baso # (Auto) 0.01 (0.00-0.10) K/uL Immature Gran # (Auto) 0.04 (0.00-0.23) K/uL Sodium 141 (140-148) mmol/L Potassium 4.0 (3.6-5.2) mmol/L Chloride 106 (100-108) mmol/L Carbon Dioxide 16 L (21-32) mmol/L Anion Gap 23.0 H (5.0-14.0) mmol/L BUN 7 (7-18) mg/dL Creatinine 0.9 (0.6-1.0) mg/dL Est Cr Clr Drug Dosing 95.35 mL/min Estimated GFR (MDRD) > 60 (>60) Glucose 136 H (74-106) mg/dL Calcium 8.4 L (8.5-10.1) mg/dL Total Bilirubin 0.3 (0.2-1.0) mg/dL AST 17 (15-37) U/L ALT 20 (12-78) U/L Alkaline Phosphatase 41 L (46-116) U/L C-Reactive Protein (0.0-0.3) mg/dL Total Protein 8.2 (6.4-8.2) g/dL Albumin 4.4 (3.4-5.0) g/dL Globulin 3.8 H (2.3-3.5) g/dL Albumin/Globulin Ratio 1.2 (1.2-2.2) Lipase (73-393) U/L Urine Color (YELLOW) Urine Appearance (CLEAR) Urine pH (5.0-8.0) Ur Specific [place] (1.008-1.030) Urine Protein (NEGATIVE) mg/dL Urine Glucose (UA) (NEGATIVE) mg/dL Urine Ketones (NEGATIVE) mg/dL Urine Occult Blood (NEGATIVE) Urine Nitrite (NEGATIVE) Urine Bilirubin (NEGATIVE) Urine Urobilinogen (0.2-1.0) EU/dL Ur Leukocyte Esterase (NEGATIVE) Urine RBC (0-5) Urine WBC (0-5) Ur Epithelial Cells Amorphous Sediment Urine Bacteria Urine Mucus Urine HCG, Qual Salicylates (2.0-20.0) mg/dL Urine Opiates Screen (NEGATIVE) Ur Oxycodone Screen (NEGATIVE) Urine Methadone Screen (NEGATIVE) Ur Propoxyphene Screen (NEGATIVE) Acetaminophen 397.7 H (10.0-30.0) ug/mL Ur Barbiturates Screen (NEGATIVE) Ur Tricyclics Screen (NEGATIVE) Ur Phencyclidine Scrn (NEGATIVE) Ur Amphetamine Screen (NEGATIVE) U Methamphetamines Scrn (NEGATIVE) Urine MDMA Screen (NEGATIVE) U Benzodiazepines Scrn (NEGATIVE) U Cocaine Metab Screen (NEGATIVE) U Marijuana (THC) Screen (NEGATIVE) Ethyl Alcohol mg/dL Influenza Type A RNA (NEGATIVE) RSV RNA (INAAT) (NEGATIVE) Influenza Type B RNA (NEGATIVE) SARS-CoV-2 RNA (MARGE) (NEGATIVE) Result Diagrams: 05/14/21 11:00 05/14/21 11:00 Sepsis Event Note - Evaluation Sepsis Screening Result: No Definite Risk - Focused Exam Vital Signs: Vital Signs Temp Pulse Resp BP Pulse Ox 05/14/21 13:00 74 20 127/75 05/14/21 12:00 98.0 F 84 19 111/71 05/14/21 11:00 16 121/82 96 05/14/21 10:00 12 120/80 95 05/14/21 09:00 12 103/50 L 96 05/14/21 07:55 97.5 F 16 120/77 95 05/14/21 07:35 17 120/77 05/14/21 07:05 18 120/77 05/14/21 06:00 19 106/52 L 99 05/14/21 05:30 18 116/79 96 05/14/21 05:00 17 123/50 L 97 05/14/21 04:35 13 118/53 L 100 05/14/21 04:05 15 107/65 100 05/14/21 03:35 19 106/54 L 98 05/14/21 03:05 21 H 112/62 97 05/14/21 02:05 16 124/67 99 *Q Meaningful Use (ADM) - VTE Risk Assess *Q Each Risk Factor Represents 1 Point: None Total Score 1 Point Risk Factors: 0 Each Risk Factor Represents 2 Points: None Total Score 2 Point Risk Factors: 0 Each Risk Factor Represents 3 Points: None Total Score 3 Point Risk Factors: 0 Each Risk Factor Represents 5 Points: None Total Score 5 Point Risk Factors: 0 Venous Thromboembolism Risk Factor Score *Q: 0 Problem List Initiated/Reviewed/Updated: Yes Orders Last 24hrs: Active Orders 24 hr Category Date Time Status Patient Status Manage Transfer [TRANSFER] Routine ADT 05/14/21 13:34 Active Initiate/Renew Violent-Self Destructive Restraints >/= Care 05/14/21 00:45 Ordered 16yo Q4H Nrsg Assess: Viol-S.Dest Rest [RC] Q1H Care 05/14/21 00:41 Active ACETAMINOPHEN [CHEM] Stat Lab 05/14/21 20:00 Ordered COMPREHENSIVE METABOLIC PN,CMP [CHEM] Routine Lab 05/14/21 20:00 Ordered INR,PT,PROTHROMBIN TIME [COAG] Routine Lab 05/14/21 20:00 Ordered Sodium Chloride 0.9% [Normal Saline] 1,000 ml Med 05/13/21 20:45 Active IV ASDIRECTED Isolation [COMM] Stat Oth 05/13/21 20:34 Ordered Resuscitation Status Routine Resus Stat 05/14/21 13:37 Ordered EKG 12 Lead [EK] Routine Ther 05/13/21 20:33 Ordered Medication Orders Sodium Chloride (Normal Saline) 1,000 mls @ 999 mls/hr IV ASDIRECTED TOBIN Last Admin: 05/13/21 21:05 Dose: 999 mls/hr Documented by: [facility]ADIQ Assessment/Plan Comment:: ASSESSMENT AND PLAN INTENTIONAL ACETAMINOPHEN OVERDOSE-associated with heavy alcohol use and history of depression. Significant elevation in 1 and 4-hour Tylenol levels. -IV fluids for hydration -N-acetylcysteine infusion per protocol -Acetaminophen level and other labs 2 hours prior to completion of infusion -Ongoing follow-up and recommendations per poison control SUICIDE ATTEMPT-history of depression and anxiety, heavy alcohol use yesterday -Suicide precautions -72-hour hold -Crisis team evaluation when medically stable MAINTENANCE ISSUES -DVT prophylaxis; not indicated -GI prophylaxis; not indicated -Aguilar catheter; not indicated -Nutrition; regular diet -Nicotine dependence; not required CODE STATUS-FULL CODE ADMISSION STATUS-patient will be admitted to inpatient status, expect at least a 2 night hospital stay for evaluation and management of problems as outlined above. At the time of this admission I do not reasonably expected evaluation a nd management of this problem will require more than a 96 hour hospital stay. DISPOSITION-anticipate discharge to home after the hospital stay. - Mortality Measure Prognosis:: Good
[2021-05-14] MEDS ORDERED: Ondansetron 4 MG/2 ML SDV IVPUSH PRN (14:35)
[2021-05-14] MEDS ORDERED: Sodium Chloride 0.9% 1,000 ML IV SCH (14:35)
[2021-05-14] MEDS ORDERED: Polyethylene Glycol 3350 Powder 17 GM Packet PO PRN (14:35)
[2021-05-14] MEDS ORDERED: Sodium Chloride 0.9% 10 ML Syringe FLUSH PRN (14:35)
[2021-05-14] MEDS: FLUoxetine 20 MG Cap PO SCH (15:14)
[2021-05-14] MEDS: Ondansetron 4 MG Tab.DIS PO PRN (21:11)
[2021-05-14] MEDS ORDERED: Acetylcysteine 20% 200 MG/ML 30 ML SDV IV ONE (22:00)
[2021-05-15] MEDS ORDERED: Potassium Chloride 20 MEQ Tab.ER PO ONE (05:48)
[2021-05-15] MEDS ORDERED: Potassium Chloride 20 MEQ in Premix Bag 1 BAG IV ONE (06:00)
[2021-05-15] MEDS: Ondansetron 4 MG Tab.DIS PO PRN (07:22)
[2021-05-15] MEDS ORDERED: Potassium Chloride 20 MEQ, Lidocaine 1% 2 ML in Sodium Chloride 0.9% 100 ML IV ONE (08:00)
[2021-05-15] MEDS: FLUoxetine 20 MG Cap PO SCH (09:42)
--- NOTE | 2021-05-15 11:21 | PCM.PN ---
- General Info Date of Service: 05/15/21 Subjective Update: Ms. Paez has been stable since yesterday. She is alert and oriented, nausea has essentially resolved. Acetaminophen level last night was still elevated so she has been placed on another 16-hour infusion of acetylcysteine. Liver tests remain within normal range as is her renal function. Currently denies suicidal ideation or intent. We attempted to have her evaluated by the crisis team today but they are unavailable. Functional Status: Reports: Tolerating Diet, Urinating - Review of Systems General: Reports: No Symptoms Pulmonary: Reports: No Symptoms Cardiovascular: Reports: No Symptoms Gastrointestinal: Reports: No Symptoms - Patient Data Vitals - Most Recent: Last Vital Signs Temp 97.8 F 05/15/21 07:52 Pulse 68 05/15/21 06:00 Resp 12 05/15/21 11:00 BP 102/54 L 05/15/21 11:00 Pulse Ox 99 05/15/21 11:00 Weight - Most Recent: 147 lb I&O - Last 24 Hours: Intake & Output 05/14/21 05/15/21 05/15/21 22:59 06:59 14:59 Intake Total 0 237 Balance 0 237 Lab Results Last 24 Hours: Laboratory Results - last 24 hr 05/14/21 05/14/21 05/14/21 Range/Units 11:00 20:00 20:00 WBC (3.2-11.0) K/uL RBC (3.77-5.24) M/uL Hgb (11.2-15.5) Hct (34.3-46.0) % MCV (81.4-99.0) fL MCH (31.6-35.5) pg MCHC (31.6-35.5) g/dL Plt Count (130-375) K/uL Immature Gran % (Auto) (0.0-0.7) % Neut % (Auto) (36-66) % Lymph % (Auto) (24-44) % Dixon % (Auto) (2-6) % Eos % (Auto) (2-4) % Baso % (Auto) (0-1) % Neut # (Auto) (1.0-7.6) K/uL Lymph # (Auto) (0.8-3.3) K/uL Dixon # (Auto) (0.20-0.90) K/uL Eos # (Auto) (0.60-0.80) K/uL Baso # (Auto) (0.00-0.10) K/uL Immature Gran # (Auto) (0.00-0.23) K/uL PT 11.6 H (9.2-10.6) sec INR 1.1 Sodium 141 139 L (140-148) mmol/L Potassium 4.0 3.3 L (3.6-5.2) mmol/L Chloride 106 104 (100-108) mmol/L Carbon Dioxide 16 L 16 L (21-32) mmol/L Anion Gap 23.0 H 22.3 H (5.0-14.0) mmol/L BUN 7 16 D (7-18) mg/dL Creatinine 0.9 1.4 H D (0.6-1.0) mg/dL Est Cr Clr Drug Dosing 95.35 61.13 mL/min Estimated GFR (MDRD) > 60 47 L (>60) Glucose 136 H 117 H (74-106) mg/dL Calcium 8.4 L 8.2 L (8.5-10.1) mg/dL Total Bilirubin 0.3 0.4 (0.2-1.0) mg/dL AST 17 23 (15-37) U/L ALT 20 22 (12-78) U/L Alkaline Phosphatase 41 L 43 L (46-116) U/L Total Protein 8.2 8.0 (6.4-8.2) g/dL Albumin 4.4 4.2 (3.4-5.0) g/dL Globulin 3.8 H 3.8 H (2.3-3.5) g/dL Albumin/Globulin Ratio 1.2 1.1 L (1.2-2.2) Acetaminophen (10.0-30.0) ug/mL 05/14/21 05/15/21 05/15/21 Range/Units 20:00 04:20 04:20 WBC 10.6 (3.2-11.0) K/uL RBC 4.65 (3.77-5.24) M/uL Hgb 13.7 (11.2-15.5) Hct 41.9 (34.3-46.0) % MCV 90.1 (81.4-99.0) fL MCH 29.5 L (31.6-35.5) pg MCHC 32.7 (31.6-35.5) g/dL Plt Count 297 (130-375) K/uL Immature Gran % (Auto) 0.4 (0.0-0.7) % Neut % (Auto) 69.6 H (36-66) % Lymph % (Auto) 23.4 L (24-44) % Dixon % (Auto) 5.8 (2-6) % Eos % (Auto) 0.0 L (2-4) % Baso % (Auto) 0.8 (0-1) % Neut # (Auto) 7.38 (1.0-7.6) K/uL Lymph # (Auto) 2.48 (0.8-3.3) K/uL Dixon # (Auto) 0.62 (0.20-0.90) K/uL Eos # (Auto) 0.00 L (0.60-0.80) K/uL Baso # (Auto) 0.09 (0.00-0.10) K/uL Immature Gran # (Auto) 0.04 (0.00-0.23) K/uL PT (9.2-10.6) sec INR Sodium 138 L (140-148) mmol/L Potassium 2.9 L* (3.6-5.2) mmol/L Chloride 103 (100-108) mmol/L Carbon Dioxide 20 L (21-32) mmol/L Anion Gap 17.9 H (5.0-14.0) mmol/L BUN 16 (7-18) mg/dL Creatinine 1.3 H (0.6-1.0) mg/dL Est Cr Clr Drug Dosing 66.01 mL/min Estimated GFR (MDRD) 51 L (>60) Glucose 111 H (74-106) mg/dL Calcium 8.5 (8.5-10.1) mg/dL Total Bilirubin 0.7 D (0.2-1.0) mg/dL AST 27 (15-37) U/L ALT 24 (12-78) U/L Alkaline Phosphatase 39 L (46-116) U/L Total Protein 7.6 (6.4-8.2) g/dL Albumin 4.0 (3.4-5.0) g/dL Globulin 3.6 H (2.3-3.5) g/dL Albumin/Globulin Ratio 1.1 L (1.2-2.2) Acetaminophen 50.0 H (10.0-30.0) ug/mL Med Orders - Current: Current Medications Fluoxetine HCl (Fluoxetine 20 Mg Cap) 40 mg PO DAILY [facility] Last Admin: 05/15/21 09:42 Dose: 40 mg Documented by: Sodium Chloride (Normal Saline) 1,000 mls @ 125 mls/hr IV ASDIRECTED [facility] Last Admin: 05/15/21 06:28 Dose: 125 mls/hr Documented by: Acetylcysteine 6,804 mg/ (Dextrose/Water) 1,034.02 mls @ 64.626 mls/hr IV ONETIME ONE Stop: 05/15/21 13:59 Last Admin: 05/14/21 22:28 Dose: 64.626 mls/hr Documented by: Ondansetron HCl (Ondansetron 4 Mg Tab.Dis) 4 mg PO Q4H PRN PRN Reason: Nausea/Vomiting Last Admin: 05/15/21 07:22 Dose: 4 mg Documented by: Polyethylene Glycol (Polyethylene Glycol 3350 Powder 17 Gm Packet) 17 gm PO DAILY PRN PRN Reason: Constipation Sodium Chloride (Sodium Chloride 0.9% 10 Ml Syringe) 10 ml FLUSH ASDIRECTED PRN PRN Reason: Keep Vein Open Discontinued Medications Sodium Chloride (Normal Saline) 1,000 mls @ 999 [facility]ls[facility] Last Admin: 05/13/21 21:05 Dose: 999 mls/hr Documented by: Acetylcysteine 10,206 mg/ (Dextrose/Water) 251.03 mls @ 251.03 mls/hr IV STAT STA; Protocol Stop: 05/14/21 00:02 Last Admin: 05/14/21 00:31 Dose: 251.03 mls/hr Documented by: Acetylcysteine 3,402 mg/ (Dextrose/Water) 517.01 mls @ 129.253 mls/hr IV ONETIME ONE; Protocol Stop: 05/14/21 01:05 Last Admin: 05/14/21 01:47 Dose: 129.253 mls/hr Documented by: Acetylcysteine 6,804 mg/ (Dextrose/Water) 1,034.02 mls @ 64.626 mls/hr IV ONETIME ONE; Protocol Stop: 05/14/21 05:07 Last Admin: 05/14/21 06:03 Dose: 64.626 mls/hr Documented by: Acetylcysteine (Acetadote 20%) Confirm Administered Dose 60 mls @ as directed .ROUTE .[facility] ONE Stop: 05/14/21 00:20 Last Admin: 05/14/21 00:33 Dose: Not Given Documented by: Dextrose/Water (Dextrose 5% In Water) Confirm Administered Dose 250 mls @ as directed .ROUTE .[facility] ONE Stop: 05/14/21 00:22 Last Admin: 05/14/21 00:33 Dose: Not Given Documented by: Acetylcysteine (Acetadote 20%) Confirm Administered Dose 30 mls @ as directed .ROUTE .[facility] ONE Stop: 05/14/21 05:51 Last Admin: 05/14/21 06:04 Dose: Not Given Documented by: Acetylcysteine (Acetadote 20%) Confirm Administered Dose 60 mls @ as directed .ROUTE .[facility] ONE Stop: 05/14/21 21:51 Last Admin: 05/14/21 22:13 Dose: Not Given Documented by: Potassium Chloride 20 meq/ (Premix) 100 mls @ 50 mls/hr IV ONETIME ONE Stop: 05/15/21 07:59 Last Admin: 05/15/21 06:20 Dose: 50 mls/hr Documented by: Potassium Chloride 20 meq/Lidocaine HCl 2 ml/ Sodium Chloride 112 mls @ 50 mls/hr IV ONETIME ONE Stop: 05/15/21 10:14 Last Admin: 05/15/21 08:11 Dose: 50 mls/hr Documented by: Lidocaine HCl (Lidocaine 1% 5 Ml Sdv) 2 ml INJECT ONETIME ONE Stop: 05/15/21 06:01 Last Admin: 05/15/21 06:21 Dose: 2 ml Documented by: Olanzapine (Olanzapine 10 Mg Vial) 10 mg IM ONETIME ONE Stop: 05/13/21 21:40 Last Admin: 05/13/21 21:47 Dose: 10 mg Documented by: Ondansetron HCl (Ondansetron 4 Mg/2 Ml Sdv) 4 mg IVPUSH ONETIME ONE Stop: 05/13/21 20:34 Last Admin: 05/13/21 21:05 Dose: 4 mg Documented by: Ondansetron HCl (Ondansetron 4 Mg/2 Ml Sdv) 4 mg IVPUSH ONETIME ONE Stop: 05/13/21 23:54 Last Admin: 05/14/21 00:01 Dose: 4 mg Documented by: Ondansetron HCl (Ondansetron 4 Mg/2 Ml Sdv) 4 mg IVPUSH Q4H PRN PRN Reason: Nausea/Vomiting Potassium Chloride (Potassium Chloride 20 Meq Tab.Er) 40 meq PO ONETIME ONE Stop: 05/15/21 05:49 Last Admin: 05/15/21 06:21 Dose: 40 meq Documented by: - Exam Quality Assessment: DVT Prophylaxis General: Alert, Oriented, Cooperative, No Acute Distress Lungs: Clear to Auscultation, Normal Respiratory Effort Cardiovascular: Regular Rate, Regular Rhythm, No Murmurs GI/Abdominal Exam: Soft, Non-Tender, No Organomegaly, No Distention Extremities: Non-Tender, No Pedal Edema - Patient Data Lab Results Last 24 hrs: Laboratory Results - last 24 hr 05/14/21 05/14/21 05/14/21 Range/Units 11:00 20:00 20:00 WBC (3.2-11.0) K/uL RBC (3.77-5.24) M/uL Hgb (11.2-15.5) Hct (34.3-46.0) % MCV (81.4-99.0) fL MCH (31.6-35.5) pg MCHC (31.6-35.5) g/dL Plt Count (130-375) K/uL Immature Gran % (Auto) (0.0-0.7) % Neut % (Auto) (36-66) % Lymph % (Auto) (24-44) % Dixon % (Auto) (2-6) % Eos % (Auto) (2-4) % Baso % (Auto) (0-1) % Neut # (Auto) (1.0-7.6) K/uL Lymph # (Auto) (0.8-3.3) K/uL Dixon # (Auto) (0.20-0.90) K/uL Eos # (Auto) (0.60-0.80) K/uL Baso # (Auto) (0.00-0.10) K/uL Immature Gran # (Auto) (0.00-0.23) K/uL PT 11.6 H (9.2-10.6) sec INR 1.1 Sodium 141 139 L (140-148) mmol/L Potassium 4.0 3.3 L (3.6-5.2) mmol/L Chloride 106 104 (100-108) mmol/L Carbon Dioxide 16 L 16 L (21-32) mmol/L Anion Gap 23.0 H 22.3 H (5.0-14.0) mmol/L BUN 7 16 D (7-18) mg/dL Creatinine 0.9 1.4 H D (0.6-1.0) mg/dL Est Cr Clr Drug Dosing 95.35 61.13 mL/min Estimated GFR (MDRD) > 60 47 L (>60) Glucose 136 H 117 H (74-106) mg/dL Calcium 8.4 L 8.2 L (8.5-10.1) mg/dL Total Bilirubin 0.3 0.4 (0.2-1.0) mg/dL AST 17 23 (15-37) U/L ALT 20 22 (12-78) U/L Alkaline Phosphatase 41 L 43 L (46-116) U/L Total Protein 8.2 8.0 (6.4-8.2) g/dL Albumin 4.4 4.2 (3.4-5.0) g/dL Globulin 3.8 H 3.8 H (2.3-3.5) g/dL Albumin/Globulin Ratio 1.2 1.1 L (1.2-2.2) Acetaminophen (10.0-30.0) ug/mL 05/14/21 05/15/21 05/15/21 Range/Units 20:00 04:20 04:20 WBC 10.6 (3.2-11.0) K/uL RBC 4.65 (3.77-5.24) M/uL Hgb 13.7 (11.2-15.5) Hct 41.9 (34.3-46.0) % MCV 90.1 (81.4-99.0) fL MCH 29.5 L (31.6-35.5) pg MCHC 32.7 (31.6-35.5) g/dL Plt Count 297 (130-375) K/uL Immature Gran % (Auto) 0.4 (0.0-0.7) % Neut % (Auto) 69.6 H (36-66) % Lymph % (Auto) 23.4 L (24-44) % Dixon % (Auto) 5.8 (2-6) % Eos % (Auto) 0.0 L (2-4) % Baso % (Auto) 0.8 (0-1) % Neut # (Auto) 7.38 (1.0-7.6) K/uL Lymph # (Auto) 2.48 (0.8-3.3) K/uL Dixon # (Auto) 0.62 (0.20-0.90) K/uL Eos # (Auto) 0.00 L (0.60-0.80) K/uL Baso # (Auto) 0.09 (0.00-0.10) K/uL Immature Gran # (Auto) 0.04 (0.00-0.23) K/uL PT (9.2-10.6) sec INR Sodium 138 L (140-148) mmol/L Potassium 2.9 L* (3.6-5.2) mmol/L Chloride 103 (100-108) mmol/L Carbon Dioxide 20 L (21-32) mmol/L Anion Gap 17.9 H (5.0-14.0) mmol/L BUN 16 (7-18) mg/dL Creatinine 1.3 H (0.6-1.0) mg/dL Est Cr Clr Drug Dosing 66.01 mL/min Estimated GFR (MDRD) 51 L (>60) Glucose 111 H (74-106) mg/dL Calcium 8.5 (8.5-10.1) mg/dL Total Bilirubin 0.7 D (0.2-1.0) mg/dL AST 27 (15-37) U/L ALT 24 (12-78) U/L Alkaline Phosphatase 39 L (46-116) U/L Total Protein 7.6 (6.4-8.2) g/dL Albumin 4.0 (3.4-5.0) g/dL Globulin 3.6 H (2.3-3.5) g/dL Albumin/Globulin Ratio 1.1 L (1.2-2.2) Acetaminophen 50.0 H (10.0-30.0) ug/mL Result Diagrams: 05/15/21 04:20 05/15/21 04:20 Sepsis Event Note - Evaluation Sepsis Screening Result: No Definite Risk - Focused Exam Vital Signs: Vital Signs Temp Pulse Resp BP Pulse Ox 05/15/21 11:00 12 102/54 L 99 05/15/21 09:49 16 109/66 99 05/15/21 08:51 16 107/67 98 05/15/21 07:52 97.8 F 20 99/45 L 99 05/15/21 06:00 98.4 F 68 10 L 98/57 L 99 05/15/21 05:42 63 16 95/57 L 98 05/15/21 04:00 77 18 190/58 H 97 05/15/21 03:00 98.4 F 71 16 122/73 98 05/15/21 02:00 71 15 113/65 98 05/15/21 01:00 92 15 109/67 98 05/15/21 00:00 84 17 119/64 99 - Problem List Review Problem List Initiated/Reviewed/Updated: Yes - My Orders Last 24 Hours: My Active Orders 05/14/21 Lunch Regular Diet [DIET] 05/14/21 13:37 Resuscitation Status Routine 05/14/21 14:35 FLUoxetine [PROzac] 40 mg PO DAILY Sodium Chloride 0.9% [Normal Saline] 1,000 ml IV ASDIRECTED Sodium Chloride 0.9% [Saline Flush] 10 ml FLUSH ASDIRECTED PRN polyethylene glycoL 3350 [MiraLAX] 17 gm PO DAILY PRN 05/14/21 14:35 Patient Status [ADT] Routine Ambulate [RC] QID Cardiac Monitoring [RC] Q6H Height and Weight [RC] DAILY Intake and Output [RC] QSHIFT Notify Provider Vital Signs [RC] ASDIRECTED Oxygen Therapy [RC] PRN Peripheral IV Care [RC] Q8H Up to Chair [RC] QID Vital Signs [RC] Q1H Peripheral IV Insertion Adult [OM.PC] Routine Suicide Precautions [OM.PC] Routine VTE Pharmacological Contraindications [AST] Per Unit Routine 05/14/21 20:07 Ondansetron [Zofran ODT] 4 mg PO Q4H PRN 05/14/21 22:00 Acetylcysteine [Acetadote 20%] 6,804 mg Dextrose 5% in Water 1,000 ml IV ONETIME 05/16/21 05:00 HEPATIC FUNCTION PANEL,HFP [CHEM] Timed - Plan Plan:: ASSESSMENT AND PLAN INTENTIONAL ACETAMINOPHEN OVERDOSE-associated with heavy alcohol use and history of depression. Significant elevation in 1 and 4-hour Tylenol levels. Level still elevated last night so she is on another 16-hour acetylcysteine infusion -Saline lock IV -N-acetylcysteine infusion per protocol -Acetaminophen level and other labs 2 hours prior to completion of infusion -Ongoing follow-up and recommendations per poison control SUICIDE ATTEMPT-history of depression and anxiety, heavy alcohol use yesterday -Suicide precautions -72-hour hold -Crisis team evaluation when available MAINTENANCE ISSUES -DVT prophylaxis; not indicated -GI prophylaxis; not indicated -Aguilar catheter; not indicated -Nutrition; regular diet -Nicotine dependence; not required CODE STATUS-FULL CODE ADMISSION STATUS-patient will be admitted to inpatient status, expect at least a 2 night hospital stay for evaluation and management of problems as outlined above. At the time of this admission I do not reasonably expected evaluation and management of this problem will require more than a 96 hour hospital stay. DISPOSITION-anticipate discharge to home after the hospital stay.
[2021-05-16] MEDS: FLUoxetine 20 MG Cap PO SCH (07:59)
--- NOTE | 2021-05-16 09:50 | PCM.DCSUM1 ---
Discharge Summary - Hospital Course Brief History: 20-year-old female with history of depression who presented after an ingestion of acetaminophen and ibuprofen in the setting of alcohol intoxication. She was admitted for management of her overdose. Diagnosis: Stroke: No - Discharge Data Discharge Date: 05/16/21 Discharge Disposition: Home, Self-Care 01 Condition: Good - Referral to Home Health Primary Care Physician: PCP None - Discharge Diagnosis/Problem(s) (1) Intentional acetaminophen overdose SNOMED Code(s): 424819031 ICD Code: T39.1X2A - POISONING BY 4-AMINOPHENOL DERIVATIVES, SELF-HARM, INIT Status: Acute Priority: High Qualifiers: Encounter type: initial encounter Qualified Code(s): T39.1X2A - Poisoning by 4-Aminophenol derivatives, intentional self-harm, initial encounter (2) Intentional ibuprofen overdose SNOMED Code(s): 652433119 ICD Code: T39.312A - POISONING BY PROPIONIC ACID DERIVATIVES, SELF-HARM, INIT Status: Acute Priority: High Qualifiers: Encounter type: initial encounter Qualified Code(s): T39.312A - Poisoning by propionic acid derivatives, intentional self-harm, initial encounter (3) Alcohol intoxication SNOMED Code(s): 16029569 ICD Code: F10.929 - ALCOHOL USE, UNSPECIFIED WITH INTOXICATION, UNSPECIFIED Status: Acute Priority: High Qualifiers: Complication of substance-induced condition: uncomplicated Qualified Code(s): F10.920 - Alcohol use, unspecified with intoxication, uncomplicated (4) Depression SNOMED Code(s): 36212003 ICD Code: F32.A - DEPRESSION, UNSPECIFIED Status: Chronic Qualifiers: Depression Type: unspecified Qualified Code(s): F32.A - Depression, unspecified - Patient Summary/Data Hospital Course: Taina presented to the emergency room by ambulance after an intentional ingestion of acetaminophen and ibuprofen. This ingestion occurred in the setting of significant alcohol intoxication. Poison control was contacted and they did recommend acetylcysteine to manage the acetaminophen overdose because of the elevation of her acetaminophen level along with the rise on the second level. She ended up requiring 2 different rounds of acetylcysteine while she was hospitalized. Her hepatic panel numbers have all been unremarkable. She appears to be doing well with no obvious complications from the acetaminophen overdose. Her creatinine did rise slightly after the large quantity of ibuprofen was allegedly ingested but she did not reach criteria for acute kidney injury. She has had adequate urine output. Her vital signs have all been stable. While she was intoxicated it was not entirely clear what the intent of this ingestion was. When she was sober conversations were held between the patient and nursing and the patient and physicians. The patient was remorseful for the ingestion. She reported that this was very impulsive while she was intoxicated. She was under a lot of stress because of work as well as some family stress after coming home. Throughout the hospital stay she has not reported any thoughts of harming herself or others. She does not feel suicidal. She is glad that she did not have any injuries from the ingestion and is very happy to be alive. There were attempts made to get a hold of the crisis team but they were unable to come evaluate the patient. After my evaluation today, May 16 I do not believe that she needs inpatient psychiatric evaluation. She is not suicidal. She has good support with work resources including counseling and access to a therapist. She has some but limited family support. She does not currently have a primary care physician. I encouraged her to utilize her resources through her work to get in touch with a psychiatrist or psychologist as well as a primary care physician. She does have phone numbers for these folks and will be scheduling these appointments. She does have easy access to a counselor through work. Before discharge she reported no thoughts of harming herself. She was upbeat and optimistic and excited to go spend some time with her grandma and her dog. - Patient Instructions Diet: Regular Diet as Tolerated Activity: As Tolerated Driving: May Drive Today Other/Special Instructions: You were in the hospital just both acetaminophen and ibuprofen. With the assistance of poison control, these ingestions were managed in the hospital. Your laboratory studies have been normal and there is no evidence for damage to your liver or kidneys. This was a serious ingestion but did happen in the setting of intoxication. After our discussion today, you did not report any thoughts of harming yourself. With your family and counseling support I think you are safe for outpatient management at this time. I would encourage you to continue to utilize your counseling resources. I would also very strongly encourage you to set up an appointment with a provider who specializes in managing depression. A primary care provider may also be a good resource to help manage medications as you may need a different medication to help with depression or potentially a new medication on top of the fluoxetine. - Discharge Plan *PRESCRIPTION DRUG MONITORING PROGRAM REVIEWED*: Not Applicable *COPY OF PRESCRIPTION DRUG MONITORING REPORT IN PATIENT ELICIA: Not Applicable Home Medications: Home Meds medroxyPROGESTERone Acetate [Depo-Provera] 1 injection IM ASDIRECTED 10/23/19 [History] FLUoxetine HCl [Prozac] 40 mg PO ASDIRECTED 05/13/21 [History] hydrOXYzine HCL [hydrOXYzine] 25 mg PO ASDIRECTED 05/13/21 [History] Oxygen Therapy Mode: Room Air Patient Handouts: Managing Depression, Adult, Suicidal Feelings: How to Help Yourself Referrals: PCP,None [Primary Care Provider] - - Discharge Summary/Plan Comment DC Time >30 min.: Yes Total # of Minutes for Discharge Time: 45 - Patient Data Vitals - Most Recent: Last Vital Signs Temp 37.0 C 05/16/21 07:57 Pulse 86 05/16/21 06:00 Resp 18 05/16/21 07:57 BP 109/46 L 05/16/21 07:57 Pulse Ox 99 05/16/21 07:57 Weight - Most Recent: 66.678 kg I&O - Last 24 hours: Intake & Output 05/15/21 05/16/21 05/16/21 22:59 06:59 14:59 Intake Total 800 600 Balance 800 600 Lab Results - Last 24 hrs: Laboratory Results - last 24 hr 05/15/21 05/15/21 05/16/21 Range/Units 12:00 12:00 04:30 PT 11.8 H (9.2-10.6) sec INR 1.2 Total Bilirubin 0.6 (0.2-1.0) mg/dL Direct Bilirubin 0.13 (0.0-0.2) mg/dL Indirect Bilirubin 0.47 AST 17 (15-37) U/L ALT 22 (12-78) U/L Alkaline Phosphatase 38 L (46-116) U/L Total Protein 6.6 (6.4-8.2) g/dL Albumin 3.6 (3.4-5.0) g/dL Globulin 3.0 (2.3-3.5) g/dL Albumin/Globulin Ratio 1.2 (1.2-2.2) Acetaminophen 2.7 L (10.0-30.0) ug/mL Med Orders - Current: Current Medications Fluoxetine HCl (Fluoxetine 20 Mg Cap) 40 mg PO DAILY [facility] Last Admin: 05/16/21 07:59 Dose: 40 mg Documented by: Ondansetron HCl (Ondansetron 4 Mg Tab.Dis) 4 mg PO Q4H PRN PRN Reason: Nausea/Vomiting Last Admin: 05/15/21 07:22 Dose: 4 mg Documented by: Polyethylene Glycol (Polyethylene Glycol 3350 Powder 17 Gm Packet) 17 gm PO DAILY PRN PRN Reason: Constipation Sodium Chloride (Sodium Chloride 0.9% 10 Ml Syringe) 10 ml FLUSH ASDIRECTED PRN PRN Reason: Keep Vein Open Discontinued Medications Sodium Chloride (Normal Saline) 1,000 mls @ 999 mls/hr IV ASDIRECTED [facility] Last Admin: 05/13/21 21:05 Dose: 999 mls/hr Documented by: Acetylcysteine 10,206 mg/ (Dextrose/Water) 251.03 mls @ 251.03 mls/hr IV STAT STA; Protocol Stop: 05/14/21 00:02 Last Admin: 05/14/21 00:31 Dose: 251.03 mls/hr Documented by: Acetylcysteine 3,402 mg/ (Dextrose/Water) 517.01 mls @ 129.253 mls/hr IV ONETIME ONE; Protocol Stop: 05/14/21 01:05 Last Admin: 05/14/21 01:47 Dose: 129.253 mls/hr Documented by: Acetylcysteine 6,804 mg/ (Dextrose/Water) 1,034.02 mls @ 64.626 mls/hr IV ONETIME ONE; Protocol Stop: 05/14/21 05:07 Last Admin: 05/14/21 06:03 Dose: 64.626 mls/hr Documented by: Acetylcysteine (Acetadote 20%) Confirm Administered Dose 60 mls @ as directed .ROUTE .[facility] ONE Stop: 05/14/21 00:20 Last Admin: 05/14/21 00:33 Dose: Not Given Documented by: Dextrose/Water (Dextrose 5% In Water) Confirm Administered Dose 250 mls @ as directed .ROUTE .[facility] ONE Stop: 05/14/21 00:22 Last Admin: 05/14/21 00:33 Dose: Not Given Documented by: Acetylcysteine (Acetadote 20%) Confirm Administered Dose 30 mls @ as directed .ROUTE .[facility] ONE Stop: 05/14/21 05:51 Last Admin: 05/14/21 06:04 Dose: Not Given Documented by: Sodium Chloride (Normal Saline) 1,000 mls @ 125 mls/hr IV ASDIRECTED [facility] Last Admin: 05/15/21 06:28 Dose: 125 mls/hr Documented by: Acetylcysteine 6,804 mg/ (Dextrose/Water) 1,034.02 mls @ 64.626 mls/hr IV ONETIME ONE Stop: 05/15/21 13:59 Last Admin: 05/14/21 22:28 Dose: 64.626 mls/hr Documented by: Acetylcysteine (Acetadote 20%) Confirm Administered Dose 60 mls @ as directed .ROUTE .[facility] ONE Stop: 05/14/21 21:51 Last Admin: 05/14/21 22:13 Dose: Not Given Documented by: Potassium Chloride 20 meq/ (Premix) 100 mls @ 50 mls/hr IV ONETIME ONE Stop: 05/15/21 07:59 Last Admin: 05/15/21 06:20 Dose: 50 mls/hr Documented by: Potassium Chloride 20 meq/Lidocaine HCl 2 ml/ Sodium Chloride 112 mls @ 50 mls/hr IV ONETIME ONE Stop: 05/15/21 10:14 Last Admin: 05/15/21 08:11 Dose: 50 mls/hr Documented by: Lidocaine HCl (Lidocaine 1% 5 Ml Sdv) 2 ml INJECT ONETIME ONE Stop: 05/15/21 06:01 Last Admin: 05/15/21 06:21 Dose: 2 ml Documented by: Olanzapine (Olanzapine 10 Mg Vial) 10 mg IM ONETIME ONE Stop: 05/13/21 21:40 Last Admin: 05/13/21 21:47 Dose: 10 mg Documented by: Ondansetron HCl (Ondansetron 4 Mg/2 Ml Sdv) 4 mg IVPUSH ONETIME ONE Stop: 05/13/21 20:34 Last Admin: 05/13/21 21:05 Dose: 4 mg Documented by: Ondansetron HCl (Ondansetron 4 Mg/2 Ml Sdv) 4 mg IVPUSH ONETIME ONE Stop: 05/13/21 23:54 Last Admin: 05/14/21 00:01 Dose: 4 mg Documented by: Ondansetron HCl (Ondansetron 4 Mg/2 Ml Sdv) 4 mg IVPUSH Q4H PRN PRN Reason: Nausea/Vomiting Potassium Chloride (Potassium Chloride 20 Meq Tab.Er) 40 meq PO ONETIME ONE Stop: 05/15/21 05:49 Last Admin: 05/15/21 06:21 Dose: 40 meq Documented by: *Q Meaningful Use (DIS) - VTE *Q VTE Pharmacological Contraindications *Q: Not Candidate LT Anticoag
== END 2021-05-16 10:30 | disposition home or self-care (01) | DRG 918 ==
LOC: JP.ED 20:31 → JP.ICU 05-14 13:34 → JP.SDSSCHI 05-14 19:50 → JP.ICU 05-14 19:51
PROVIDERS: ADMIT Hospitalist; ATTEND Internal Medicine
DX: T39.1X2A Poisoning by 4-Aminophenol derivatives, intentional self-harm, initial encounter (principal); T39.312A Poisoning by propionic acid derivatives, intentional self-harm, initial encounter; F32.A Depression, unspecified; F41.9 Anxiety disorder, unspecified; F10.920 Alcohol use, unspecified with intoxication, uncomplicated; Z20.822 Contact with and (suspected) exposure to COVID-19; F17.200 Nicotine dependence, unspecified, uncomplicated; Z79.899 Other long term (current) drug therapy
CPT/HCPCS: 0241U; 36415; 80053; 80076; 80143; 80179; 80305-QW; 80307; 81001; 81025; 83690; 85025; 85610; 86140; 93005; A9270-GY; J0132; J2405; J3480; J3490; J7030; J7060